=== PATIENT | female | born 1990 | race Caucasian/White ===

== ENCOUNTER 2023-04-04 12:53 | Emergency (ER) | payer OTHER, SELFPAY ==
[2023-04-04 13:01] VITALS: BP 125/93; PULSE 78; RESP 16; TEMP 36.8; O2SAT 99; BMI 22.0
[2023-04-04] MEDS: LIDOCAINE HCL 1% 100 MG/10 ML MDV INJ (14:56)
[2023-04-04] MEDS: SODIUM CHLORIDE 0.9% IRRIG SOLUTION 1,000 ML BOTTLE 1000 ML IRR (14:57)
--- NOTE | 2023-04-04 15:04 | ED_ITS ---
Documented by User: Kathya Shaffer 04/04/23 15:15 HPI - General Adult General Chief complaint: Skin/Abscess/Foreign Body Stated complaint: LOWER EXTREMITY PAIN Time Seen by Provider: 04/04/23 13:47 Source: patient Mode of arrival: walk-in Limitations: no limitations History of Present Illness HPI narrative: 32-year-old female presents with chief complaint of right labial abscess. Patient states she has had this drained in the past. She states started having pain 2-3 days ago. she sees Dr Fernandez and was to have surgery over a year ago but was drained and did not have another issue. Related Data Previous Rx's Medication Instructions Recorded doxycycline hyclate 100 mg capsule 100 mg PO BID 10 days #20 caps 04/04/23 Allergies Allergy/AdvReac Type Severity Reaction Status Date / Time No Known Drug Allergies Allergy Verified 04/04/23 13:03 Review of Systems ROS Narrative ROS:All Systems are negative except as noted/marked.All systems reviewed and otherwise negative PFSH PFSH Social History Smoking status: Former smoker Exam Narrative Exam Narrative: Nurses note and vital signs reviewed and patient is not hypoxic. General: The patient appears well and in no apparent distress. Patient is resting comfortably on cart. Skin: Warm, dry, no pallor noted. There is no rash noted. Head: Normocephalic, atraumatic Eye: Normal conjunctiva, no drainage, EOMI. PERRL Ears, Nose, Mouth, and Throat: oral mucosa is moist. Nares patent. Mouth without vesicles. Ear canals patent. Tm's without Erythema gu: right labia abscess, no acute drainage, 3x 2 cm area of swelling and fluctuance Musculoskeletal: The patient has no evidence of calf tenderness, no pitting edema, symmetrical pulses noted bilaterally Neurological: A&O x4, normal speech Psychiatric: Cooperative Constitutional Vital Signs, click to edit/add: Last Vital Signs Temp 98.2 F 04/04/23 13:01 Pulse 78 04/04/23 13:01 Resp 16 04/04/23 13:01 BP 125/93 H 04/04/23 13:01 Pulse Ox 99 04/04/23 13:01 O2 Del Method Room Air 04/04/23 13:01 Course Vital Signs Vital signs: Vital Signs Temperature 98.2 F 04/04/23 13:01 Pulse Rate 78 04/04/23 13:01 Respiratory Rate 16 04/04/23 13:01 Blood Pressure 125/93 H 04/04/23 13:01 Pulse Oximetry 99 04/04/23 13:01 Oxygen Delivery Method Room Air 04/04/23 13:01 Temperature 98.2 F 04/04/23 13:01 Pulse Rate 78 04/04/23 13:01 Respiratory Rate 16 04/04/23 13:01 Blood Pressure 125/93 H 04/04/23 13:01 Pulse Oximetry 99 04/04/23 13:01 Oxygen Delivery Method Room Air 04/04/23 13:01 Medical Decision Making MDM Narrative Medical decision making narrative: pt has history of labial abscess. right labia abscess on exam 2x3 cm of induration, area anesthetized with 1% lidocaine , area was cleaned with Betadine normal saline. small incision made with 11 blade. small amount of blood drained, area irrigated with normal saline and Betadine , 1/4 packing placed. dressing applied by nursing staff. pt will be discharged to home and follow up with Dr Fernandez in 2 days. pt verbalizes understanding and agrees with plan of care Differential Diagnosis Differential Diagnosis: Bartholin cyst, abscess or cyst, abscess Medical Records Medical records reviewed: Yes I reviewed the patient's medical records Lab Data Lab results reviewed: Yes I reviewed the patient's lab results Discharge Plan Discharge Chief Complaint: Skin/Abscess/Foreign Body Clinical Impression: Abscess of Bartholin's gland Patient Disposition: Home, Self-Care Time of Disposition Decision: 15:02 Condition: Good Prescriptions / Home Meds: New doxycycline hyclate 100 mg capsule 100 mg PO BID 10 Days Qty: 20 0RF Instructions: Abscess (ED), Incision and Drainage (ED) Stand Alone Forms: Portal Instructions Referrals: Brian Fernandez DO [Physician] - 04/06/23 Physician,Non-Staff, [Primary Care Provider] - 1 week Discharge Date/Time: 04/04/23 15:16 Documented by User: Rainer Hernandez MD 04/04/23 21:08 HPI - General Adult General Chief complaint: Skin/Abscess/Foreign Body Stated complaint: LOWER EXTREMITY PAIN Time Seen by Provider: 04/04/23 13:47 Related Data Previous Rx's Medication Instructions Recorded doxycycline hyclate 100 mg capsule 100 mg PO BID 10 days #20 caps 04/04/23 Allergies Allergy/AdvReac Type Severity Reaction Status Date / Time No Known Drug Allergies Allergy Verified 04/04/23 13:03 PFSH PFS Social History Smoking status: Former smoker Exam Constitutional Vital Signs, click to edit/add: Last Vital Signs Temp 98.2 F 04/04/23 13:01 Pulse 78 04/04/23 13:01 Resp 16 04/04/23 13:01 BP 125/93 H 04/04/23 13:01 Pulse Ox 99 04/04/23 13:01 O2 Del Method Room Air 04/04/23 13:01 Course Vital Signs Vital signs: Vital Signs Temperature 98.2 F 04/04/23 13:01 Pulse Rate 78 04/04/23 13:01 Respiratory Rate 16 04/04/23 13:01 Blood Pressure 125/93 H 04/04/23 13:01 Pulse Oximetry 99 04/04/23 13:01 Oxygen Delivery Method Room Air 04/04/23 13:01 Temperature 98.2 F 04/04/23 13:01 Pulse Rate 78 04/04/23 13:01 Respiratory Rate 16 04/04/23 13:01 Blood Pressure 125/93 H 04/04/23 13:01 Pulse Oximetry 99 04/04/23 13:01 Oxygen Delivery Method Room Air 04/04/23 13:01 Medical Decision Making [facility] Narrative Medical decision making narrative: pt has history of labial abscess. right labia abscess on exam 2x3 cm of induration, area anesthetized with 1% lidocaine , area was cleaned with Betadine normal saline. small incision made with 11 blade. small amount of blood drained, area irrigated with normal saline and Betadine , 1/4 packing placed. dressing applied by nursing staff. pt will be discharged to home and follow up with Dr Fernandez in 2 days. pt verbalizes understanding and agrees with plan of care I, Dr Hernandez, have reviewed the above progress note and course of action in the ER; agree with the above. I have gone over history and physical, and discussed disposition and treatment plan with the patient. Discharge Plan Discharge Chief Complaint: Skin/Abscess/Foreign Body Clinical Impression: Abscess of Bartholin's gland Patient Disposition: Home, Self-Care Time of Disposition Decision: 15:02 Condition: Good Prescriptions / Home Meds: New doxycycline hyclate 100 mg capsule 100 mg PO BID 10 Days Qty: 20 0RF Instructions: Abscess (ED), Incision and Drainage (ED) Stand Alone Forms: Portal Instructions Referrals: Brian Fernandez DO [Physician] - 04/06/23 Physician,Non-Staff, [Primary Care Provider] - 1 week Discharge Date/Time: 04/04/23 15:16
[2023-04-04] MEDS: DOXYCYCLINE MONOHYDRATE 100 MG CAPSULE PO (15:06)
== END 2023-04-04 15:16 | disposition home or self-care (01) ==
PROVIDERS: Emergency Provider Emergency Medicine
DX: N75.1 Abscess of Bartholin's gland (principal); Z87.891 Personal history of nicotine dependence
CPT/HCPCS: 56420; 99285

== ENCOUNTER 2023-04-06 10:38 | Day surgery (SDC) | payer OTHER, SELFPAY ==
[2023-04-06] VITALS (14 sets, daily range): BP systolic 95–139; BP diastolic 43–75; PULSE 52–88; RESP 12–25; TEMP 36.4–36.7; O2SAT 98–100; BMI 23.4
[2023-04-06 11:14] LABS: HCG Quantitative <1 mIU/mL
[2023-04-06] MEDS: LACTATED RINGER'S SOLUTION 1,000 ML 50 ML IV (11:35)
--- NOTE | 2023-04-09 | OP_ITS ---
OPERATION DATE: ??04/09/2023 PROCEDURE:? Incision and drainage of right labial abscess. PREOPERATIVE DIAGNOSIS:? Right labial abscess. POSTOPERATIVE DIAGNOSIS:? Right labial abscess. ANESTHESIA:? General. SURGEON:? Brian Fernandez D.O. [employer]SEMBLER CLIP ON SUNGLASSES:? None. BLOOD LOSS:? 10 mL. URINE OUTPUT:? Yellow and clear. FINDINGS:? Right labial abscess approximately 8 cm in size. SPECIMEN:? Culture and sensitivity of abscess. PROCEDURE:? Patient was taken back to the operating room where she was prepped and draped in the normal sterile fashion after being placed into lithotomy position.? The right labial abscess was identified.? The incision was extended where there was a disruption in the right labial tissue and this was extended.? This was probed with a hemostat and copious amounts of pus were drained and irrigated from the patient?s right labia.? This was approximately 8 cm in size.? Please note:? The hemostat was used to break down all loculations.? Again, a significant amount of fluid was used to irrigate the area of concern.? Excellent hemostasis was noted.? The patient?s area was then packed using half inch Iodoform.? The patient was taken out of the dorsolithotomy position and awakened without difficulty.? Patient taken to Recovery in stable condition. [facility]
== END 2023-04-06 15:55 | disposition home or self-care (01) ==
PROVIDERS: Visit Provider Obstetrics & Gynecology
PROC: (CPT 400; principal; 2023-04-06 12:15)
DX: N76.4 Abscess of vulva (principal); Z87.891 Personal history of nicotine dependence
CPT/HCPCS: 56405; 36415; 84702; 87070; 87076; 87150; 87186; 99999; J2704

== ENCOUNTER 2024-01-11 20:35 | Outpatient (REF) | payer OTHER, SELFPAY ==
--- OUTSIDE RECORDS SUMMARY | 2024-01-11 20:39 | XMS_ITS | CCD ---
Author Organization [facility] Care Team Providers Care Relay Record Clerk Name Role Phone Unavailable Primary Care Provider SABRINA Morfin Attending Unavailable REQUEST, NONE LISTED Primary Care Unavailduglas MARTINEZ, DR PERKINS Consulting Unavailable JUAN, DR PERKINS Admitting Unavailable JUAN, DR PERKINS Attending Unavailable ZIEBER, DR TOYIN Bingham Consulting Unavailable JUAN, DR PERKINS Admitting Unavailable JUAN, DR PERKINS Attending Unavailable JUAN, DR PERKINS Consulting Unavailable MATTHEW, NONE LISTED Primary Care UnavailSARAH Stafford Attending Unavailable SARAH VIDES Attending Unavailable GREGORIO MARTINEZ Attending Unavailable Medications Current Medications Medication Drug Class(es) Dates Sig (Normalized) Sig (Original) albuterol 0.83 mg/ml inhalation solution (4 sources) beta2-Adrenergic Agonist Start: 10-03-2020 End: 10-03-2020 albuterol (PROVENTIL) nebulizer solution 2.5 mg Start: 10-03-2020 albuterol sulf ate HFA 108 (90 Base) MCG/ACT inhaler 2 puff Start: 10-03-2020 End: 10-03-2020 albuterol (PROVENTIL) (2.5 M G/3ML) 0.083% nebulizer solution predniSONE 50 mg oral tablet (1 source) Start: 10-03-2020 End: 10-07-2020 take 1 tablet by mouth once daily predniSONE (DELTASONE) 50 MG tablet Take 1 tablet by mouth daily for 4 days 5 tablet 0 10/03/2020 10/07/2020 Active Completed/Discontinued Medications Medication Drug Class(es) Dates Sig (Normalized) Sig (Original) methylPREDNISolone 125 mg injection (1 source) Corticosteroid Start: End: methylPREDNISolone sodium (SOLU-MEDROL) injection 125 mg Problems Problem Classification Problem Date Documented Date Episodic/Chronic Asthma (1 source) Allergic asthma; Translations: [Unspecified asthma, uncomplicated] Chronic Immunizations and screening for infectious disease (1 source) Encounter for screening for human papillomavirus (HPV); Translations: [ENC SCREENING HUMAN PAPILLOMAVIRUS] Onset: 01-08-2022 Episodic Menstrual disorders (4 sources) Excessive and frequent menstruation with irregular cycle; Translations: [EXCESS AND FREQ MEN W/IRREG CYCLE] Onset: 03-19-2022 Chronic Nonmalignant breast conditions (1 source) Nipple discharge; Translations: [NIPPLE DISCHARGE] Onset: 01-08-2022 Episodic Other screening for suspected conditions (not mental disorders or infectious disease) (4 sources) Encounter for screening for malignant neoplasm of cervix; Translations: [ENC SCREENING MALIG NEOPLASM CERV] Onset: 01-07-2022 Episodic Results Test Name Value Interpretation Reference Range Facility PROGESTERONEon 03-21-2022 Progesterone 0.3 ng/mL Normal [facility] Comment on above: Result Comment: Foll icular phase 0.1 - 0.9 Luteal phase 1.8 - 23.9 Ovulation phase 0.1 - 12.0 First trimester 11.0 - 44.3 Second trimester 25.4 - 83.3 Third trimester 58.7 - 214.0 Postmenopausal 0.0 - 0.1 Performed By: #### P MARLENA #### [facility] [address] [place] [address] Dr. Radha Cintron US PELVIS AND TRANSVAGon US PELVIS AND TRANSVAG EXAMINATION: US PELVIS AND TRANSVAG HISTORY: Excessive menstruation with irregular cycle COMPARISON: Ultrasound pelvis 03/20/2019 TECHNIQUE: Transabdominal and transvaginal sonographic examination. FINDINGS: UTERUS: Normal size and appearance. Uterus size: 7.8 x 4.5 5.0 cm ENDOMETRIUM: Normal homogeneous appearance. Endometrial thickness: 7 mm RIGHT OVARY: Contains several anechoic simple cysts. Contains a small 0.3 cm calcification versus hyperdense/hemorrhagi c cyst. Duplex Doppler demonstrates normal waveform and flow; resistive index 0.7. Ovary size: 3.2 x 1.6 x 1.3 cm LEFT OVARY: Contains several anechoic simple cysts, largest is 3.2 cm. Duplex Doppler demonstrates normal waveform and flow; resistive index 0.5. Ovary size: 4.2 x 3.5 x 3.7 cm CUL-DE-SAC: Unremarkable. No significant free fluid. BLADDER: Unremarkable. OTHER: None. IMPRESSION: 1. No abnormal or suspicious findings to account for patient's symptoms. 2. Both ovaries contain several benign-appearing simple cysts. Electronically authenticated by: TOYIN DORADO Date: 2022-03-20 07:45 Normal [facility] CBC AUTO DIFFon 03-19-2022 BASO # 0.1 103/ul Normal 0.0-0.1 [facility] Comment on above: Performed By: #### C BC #### [facility] [address] [address] [address] Radha Cintron Basophils/100 WBC (Bld) 0.7 % Normal 0.2-2.0 [facility] Comment on above: Performed By: #### C BC #### [facility] [address] [address] [address] Radha Cintron EO # 0.2 103/ul Normal 0.0-0.7 [facility] Comment on above: Performed By: #### C BC #### [facility] [address] [address] [address] Radha Cintron Eosinophils/100 WBC (Bld) 1.9 % Normal 0.9-7.0 [facility] Comment on above: Performed By: #### C BC #### [facility] [address] [address] [address] Radha Cintron Erythrocyte distribution width (RBC) [Ratio] 12.9 % Normal 11.0-15.0 [facility] Comment on above: Performed By: #### C BC #### [facility] [address] [address] [address] Radha Cintron Hematocrit (Bld) [Volume fraction] 40.6 % Normal 36.0-48.0 [facility] Comment on above: Performed By: #### C BC #### [facility] [address] [address] [address] Radha Cintron Hemoglobin (Bld) [Mass/Vol] 13.5 g/dL Normal 12.0-16.0 [facility] Comment on above: Performed By: #### C BC #### [facility] [address] [place] [address] Dr. Radha Cintron IG # 0.02 10e3/ul Normal 0.00-0.03 [facility] Comment on above: Performed By: #### C BC #### [facility] [address] [place] [address] Dr. Radha Cintron IG % 0.2 % Normal 0.0-0.5 [facility] Comment on above: Performed By: #### C BC #### [facility] [address] [place] [address] Dr. Radha Cintron LYMPH # 2.9 103/ul Normal 1.2-3.8 [facility] Comment on above: Performed By: #### C BC #### [facility] [address] [place] [address] Dr. Radha Cintron Lymphocytes/100 WBC (Bld) 33.7 % Normal 20.5-60.0 [facility] Comment on above: Performed By: #### C BC #### [facility] [address] [place] [address] Dr. Radha Cintron MANUAL DIFF REQ NO Normal [facility] Comment on above: Performed By: #### C BC #### [facility] [address] [place] [address] Dr. aRdha Cintron MCH (RBC) [Entitic mass] 29.7 pg Normal 26.7-34.0 [facility] Comment on above: Performed By: #### C BC #### [facility] [address] [place] [address] Dr. Radha Cintron MCHC (RBC) [Mass/Vol] 33.3 g/dL Normal 29.9-35.2 [facility] Comment on above: Performed By: #### C BC #### [facility] [address] [place] [address] Dr. Radha Cintron MCV (RBC) [Entitic vol] 89.4 fL Normal 81.0-99.0 [facility] Comment on above: Performed By: #### C BC #### [facility] [address] [place] [address] Dr. Radha Cintron MONO # 0.6 103/ul Normal 0.3-0.8 [facility] Comment on above: Performed By: #### C BC #### [facility] [address] [place] [address] Dr. Radha Cintron Monocytes/100 WBC (Bld) 6.5 % Normal 1.7-12.0 [facility] Comment on above: Performed By: #### C BC #### [facility] [address] [place] [address] Dr. Radha Cintron NEUT # 4.9 103/ul Normal 1.4-6.5 [facility] Comment on above: Performed By: #### C BC #### [facility] [address] [place] [address] Dr. Radha Cintron Neutrophils/100 WBC (Bld) 57.0 % Normal 43.0-75.0 [facility] Comment on above: Performed By: #### C BC #### [facility] [address] [place] [address] Dr. Radha Cintron Platelet mean volume (Bld) [Entitic vol] 10.8 fL Normal 9.5-13.5 [facility] Comment on above: Performed By: #### C BC #### [facility] [address] [place] [address] Dr. Radha Cintron PLT 252 103/ul Normal 150-450 [facility] Comment on above: Performed By: #### C BC #### [facility] [address] [place] [address] Dr. Radha Cintron RBC 4.54 106/ul Normal 4.20-5.40 [facility] Comment on above: Performed By: #### C BC #### [facility] [address] [place] [address] Dr. Radha Citnron WBC 8.6 103/ul Normal 4.0-11.0 [facility] Comment on above: Performed By: #### C BC #### [facility] [address] [place] [address] Dr. Radha Cintron FREE T4on 03-19-2022 Free T4 [Mass/Vol] 1.17 ng/dL Normal 0.76-1.46 [facility] Comment on above: Performed By: #### F T4 #### [facility] [address] [address] [address] Radha Cintron GLYCOHEMOGLOBIN A1Con 2021 ADA RECOMMENDATION SEE BELOW Normal [facility] Comment on above: Result Comment: ADA RECOMMENDED LIMIT 4.0 - 6.0 ADA THERAPEUTIC TARGET < 7.0 ACTION SUGGESTED > 7.0 Performed By: #### A 1C ####[facility] [id number] [address]Dr. Radha Cintron Glucose [Mass/Vol] 97 mg/dL Normal [facility] Comment on above: Performed By: #### A 1C ####[facility] [id number] [address]Dr. Radha Cintron HbA1c (Bld) [Mass fraction] 5.0 % Normal 4.5-6.2 [facility] Comment on above: Performed By: #### A 1C ####[facility] [id number] [address]Dr. Radha Cintron LDHon 03-19-2022 LDH 145 U/L Normal 81-234 [facility] Comment on above: Performed By: #### L DH, TSH #### [facility] [address] [address] [address] Radha Cintron PROTIMEon 03-19-2022 INR Coag (PPP) [Relative time] 1.09 {INR} Normal [facility] Comment on above: Performed By: #### P T, PTT #### [facility] [address] [address] [address] Radha Cintron INR GUIDELINES SEE BELOW Normal [facility] Comment on above: Result Comment: MARYBETH RED INR: 2.0 - 3.0 CONDITIONS NOT LISTED BELOW 2.5 - 3.5 FOR PROSTHETIC HEART VALVE REPLACEMENT 2.5 - 3.5 RECURRENT THROMBOSIS Performed By: #### P T, PTT #### [facility] [address] [place] [address] Dr. Radha Cintron PT Coag (PPP) [Time] 11.7 s Critically high 9.0-11.6 [facility] Comment on above: Performed By: #### P T, PTT #### [facility] [address] [place] [address] Dr. Radha Cintron PTTon 03-19-2022 aPTT Coag (Bld) [Time] 31.6 s Normal 22.3-36.2 [facility] Comment on above: Performed By: #### P T, PTT #### [facility] [address] [place] [address] Dr. Radha Cintron TSHon 03-19-2022 TSH 1.511 uIU/mL Normal 0.358-3.740 [facility] Comment on above: Performed By: #### L DH, TSH #### [facility] [address] [place] [address] Dr. Radha Cintron PAP ACOG PANEL 2: 30 to 65on 01-15-2022 . . Normal [facility] Comment on above: Result Comment: Perf ormed at: WB Performed By: #### [id number] #### [facility] [address] [place] [address] Dr. Radha Cintron Age Gdln ACOG Testing - Normal [facility] Comment on above: Performed By: #### [id number] #### [facility] [address] [place] [address] Dr. Radha Cintron DIAGNOSIS: Comment Normal [facility] Comment on above: Result Comment: NEGA TIVE FOR INTRAEPITHELIAL LESION OR MALIGNANCY. Performed at: WB Performed By: #### [id number] #### [facility] [address] [place] [address] Dr. Radha iCntron HPV Aptima Negative Normal Negative [facility] Comment on above: Result Comment: This nucleic acid amplification test detects fourteen high-risk HPV types (16,18,31,33,35,39,45,51,52,56,58,59,66,68) without differentiation. Performed at: =G Performed By: #### [id number] #### [facility] [address] [place] [address] Dr. Radha Cintron Methodology: Comment Normal [facility] Comment on above: Result Comment: This liquid based ThinPrep(R) pap test was screened with the use of an image guided system. Performed at: WB Performed By: #### [id number] #### [facility] [address] [place] [address] Dr. Radha Cintron Note: Comment Normal [facility] Comment on above: Result Comment: The Pap smear is a screening test designed to aid in the detection of premalignant and malignant conditions of the uterine cervix. It is not a diagnostic procedure and should not be used as the sole means of detecting cervical cancer. Both false-positive and false-negative reports do occur. . Performed at: WB Performed By: #### [id number] #### [facility] [address] [place] [address] Dr. Radha Cintron Performed by: Comment Normal [facility] Comment on above: Result Comment: Patricia Marquez, Hydraulic Plumber Helper (ASCP) Performed at: WB Performed By: #### [id number] #### [facility] [address] [place] [address] Dr. Radha Cintron Specimen adequacy: Comment Normal [facility] Comment on above: Result Comment: Sati sfactory for evaluation. Endocervical and/or squamous metaplastic cells (endocervical component) are present. Performed at: WB Performed By: #### [id number] #### [facility] [address] [place] [address] Dr. Radha Cintron WOUND CULTUREon 01-11-2022 Bacteria identified Aer cx Nom (Unsp spec) Final report [facility] Comment on above: Performed By: #### C XWND #### [facility] [address] [place] [address] Dr. Radha Cintron Result 1 Mixed skin cris Normal [facility] Comment on above: Performed By: #### C XWND #### [facility] [address] [place] [address] Dr. Radha Cintron COVID-19, RapidOrdered By: Janelle Reyes on 10-03-2020 SARS-CoV-2 (COVID-19) RNA GÉNESIS+probe Ql (Unsp spec) Not detected Not Detected [employer] Phone: Comment on above: Rapid NAAT: The specimen is NEGATIVE for SARS-CoV-2, the novel coronavirus associated with COVID-19. The ID NOW COVID-19 assay is designed to detect the virus that causes COVID-19 in patients with signs and symptoms of infection who are suspected of COVID-19. An individual without symptoms of COVID-19 and who is not shedding SARS-CoV-2 virus would expect to have a negative (not detected) result in this assay. Negative results should be treated as presumptive and, if inconsistent with clinical signs and symptoms or necessary for patient management, should be tested with an alternative molecular assay. Negative results do not preclude SARS-CoV-2 infection and should not be used as the sole basis for patient management decisions. Fact sheet for Healthcare Providers: https://www.fda.gov/media/038392/download Fact sheet for Patients: https://www.fda.gov/media/061652/download Methodology: Isothermal Nucleic Acid Amplification Specimen Description .NASOPHARYNGEAL SWAB [employer] Phone: [employer] Phone: [id number] 10-03-2020 SARS-CoV-2 (COVID-19) RNA GÉNESIS+probe Ql (Unsp spec) Not detected Normal [facility] Comment on above: Result Comment: Rapid NAAT: The specimen is NEGATIVE for SARS-CoV-2, the novel coronavirus associated with COVID-19. The ID NOW COVID-19 assay is designed to detect the virus that causes COVID-19 in patients with signs and symptoms of infection who are suspected of COVID-19. An individual without symptoms of COVID-19 and who is not shedding SARS-CoV-2 virus would expect to have a negative (not detected) result in this assay. Negative results should be treated as presumptive and, if inconsistent with clinical signs and symptoms or necessary for patient management, should be tested with an alternative molecular assay. Negative results do not preclude SARS-CoV-2 infection and should not be used as the sole basis for patient management decisions. Fact sheet for Healthcare Providers: https://www.fda.gov/media/234133/download Fact sheet for Patients: https://www.fda.gov/media/034358/download Methodology: Isothermal Nucleic Acid Amplification Performed By: #### C OVRB #### [facility] [address] [place] [address] [employer] Dry [employer] Manager: Bill Walter MD XR CHEST (2 VW)on 10-03-2020 XR CHEST (2 VW) EXAMINATION: TWO XRAY VIEWS OF THE CHEST 10/03/2020 1:49 am COMPARISON: None. HISTORY: ORDERING SYSTEM PROVIDED HISTORY: cough TECHNOLOGIST PROVIDED HISTORY: cough FINDINGS: Heart size and pulmonary vasculature are normal. The lungs are clear and normally expanded. Surrounding osseous and soft tissue structures are unremarkable. IMPRESSION: Normal examination. Interpreted by: Karthik Massey Signed by: Karthik Massey 10/03/20 Final result Normal [facility] XR CHEST (2 VW)Ordered By: Janelle Reyes on 10-03-2020 Normal examination. [employer] Phone: EXAMINATION: TWO XRA Y VIEWS OF THE CHEST 10/03/2020 1:49 am COMPARISON: None. HISTORY: ORDERING SYSTEM PROVIDED HISTORY: cough TECHNOLOGIST PROVIDED HISTORY: cough FINDINGS: Heart size and pulmonary vasculature are normal. The lungs are clear and normally expanded. Surrounding osseous and soft tissue structures are unremarkable. [employer] Phone: Rakan, pn Incoming Radiant Results From [employer] - 10/03/2020 2:42 AM EDT EXAMINATION: TWO XRAY VIEWS OF THE CHEST 10/03/2020 1:49 am COMPARISON: None. HISTORY: ORDERING SYSTEM PROVIDED HISTORY: cough TECHNOLOGIST PROVIDED HISTORY: cough FINDINGS: Heart size and pulmonary vasculature are normal. The lungs are clear and normally expanded. Surrounding osseous and soft tissue structures are unremarkable. IMPRESSION: Normal examination. [employer] Phone: [employer] Phone: Vital Signs Date Time Vital Sign Value Performing Clinician Faci lity 10-03-2020 03:30-0400 Diastolic blood pressure 60 mm[Hg] Sabrina Reyes MD Work Phone: [employer] Work Phone: 10-03-2020 03:30-0400 SaO2% (BldA) [Mass fraction] 93 % Sabrina Reyes MD Work Phone: [employer] Work Phone: 10-03-2020 03:30-0400 Systolic blood pressure 123 mm[Hg] Sabrina Reyes MD Work Phone: [employer] Work Phone: 10-03-2020 01:15-0400 Body temperature 97.2 [degF] Sabrina Reyes MD Work Phone: [employer] Work Phone: 10-03-2020 01:15-0400 Heart rate 95 /min Sabrina Reyes MD Work Phone: [employer] Work Phone: 10-03-2020 01:15-0400 Respiratory rate 18 /min Sabrina Reyes MD Work Phone: [employer] Work Phone: Encounters Encounter Date Encounter Type Care Provider Facility Start: 11-24-2023 End: 11-24-2023 ambulatory GREGORIO MARTINEZ Not Available Start: 04-09-2023 End: 04-09-2023 ambulatory SARAH VIDES Not Available Start: 04-07-2023 End: 04-07-2023 ambulatory SARAH PEEWEE Not Available Start: 04-06-2023 End: 04-06-2023 ambulatory SARAH PEEWEE Not Available Start: 03-19-2022 End: 03-20-2022 ambulatory NONE LISTED REQUEST Facility:[facility] Start: 01-07-2022 End: 01-07-[address] GREGORIO MARTINEZ Facility: Start: 10-03-2020 End: 10-03-2020 Emergency department patient visit SABRINA REYES [facility] Start: 10-03-2020 End: 10-03-2020 Emergency department patient visit Sabrina Reyes MD Work Phone: [facility] ED Comment on above: Asthma due to season al allergies (Primary Dx) Procedures Date Procedure Procedure Detail Performing Clinician Start: 10-03-2020 COVID-19, RAPID Sabrina Reyes MD Work Phone: Start: 10-03-2020 Radiologic exam ches t 2 views Sabrina Reyes MD Work Phone: Plan of Treatment Date Care Activity Detail Author Start: 01-08-2021 Influenza vaccination Flu vacc ine (Season Ended) [facility] Work Phone: Start: 2010 Screening for malign ant neoplasm of cervix Cervical cancer screen [facility] [employer] Phone: Start: 2008 DTaP/Tdap/Td vaccine (1 - Tdap) DTaP/Tdap/Td vaccine (1 - Tdap) [facility] [employer] Phone: Start: 2004 HIV screening HIV screen [facility] Work Phone: Start: 2001 COVID-19 Vaccine (1) COVID-19 Vaccin e (1) [facility] [employer] Phone: Start: 01-01-1996 Pneumococcal 0-64 ye ars Vaccine (1 of 2 - PPSV23) Pneumococcal 0-64 years Vaccine (1 of 2 - PPSV23) [facility] [employer] Phone: Start: 1990 Varicella vaccine (1 of 2 - 2-dose childhood series) Varicella vaccine (1 of 2 - 2-dose childhood series) [facility] [employer] Phone: Start: 1989 Hepatitis C screening Hepatitis C sc reen [facility] [employer] Phone: Nebulizer therapy [facility] Treatment Respiratory Care Routine Every 6hr As Needed until discontinued starting 10/03/2020 [facility] [employer] Phone: Comment on above: Every 6hr As Needed until discontinued starting 10/03/2020 Payers Date Payer Category Payer Unknown [id number] [id number] 1989 Unknown [id number] 2.16.84 [id number] 1989 Unknown [id number] 2.16.84 [id number] 1989 Unknown [id number] 2.16.84 [id number] 1989 Unknown [id number] 1989 Unknown [id number] 1989 Unknown [id number] 1959 Unknown [id number] Social History Date Type Detail Facility Start: 11-14-2018 Tobacco smoking stat [facility] Current every day smoker [employer] Phone: Start: 11-14-2018 Cigarettes smoked current (pack per day) - Reported [employer] Phone: Start: 11-14-2018 Tobacco use and exposure Never used [employer] Start: 11-14-2018 Alcohol intake Ex-drinker (finding) [employer] Phone: Start: 1989 Sex Assigned At Not on file [facility] [employer] Phone: Exposure to SARS-CoV -2 (event) Not sure [employer] Evaluation note Note Date & Type Note Facility Evaluation note Diagnosis Asthma due to seasonal allergies- Primary documented in this encounter [employer] Phone: Hospital Discharge instructions InstructionsAttachments Note Date & Type Note Facility Hospital Discharge instructions Sabrina Reyes MD - 10/03/2020 Continue Claritin daily until symptoms resolve. Make sure that she stay well-hydrated. Take prednisone daily until complete. Use albuterol 2 puffs every 4 hours as needed for wheezing. Please return immediately if you develop any worsening symptoms. Follow-up with your primary care provider in 2 to 3 days if symptoms have not resolved. 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 Purpose Family History No Family History Records FoundNo Family History Records FoundNo Family History Records Found Additional Source Comments Reason for Visit (unrecogniz ed section and content) Reason Comments Shortness of Breath onset today Sinusitis onset today Cough onset today Ordered Prescriptions (unrec ognized section and content) Prescription Sig Dispensed Refills Start Date End Da te predniSONE (DELTASONE) 50 MG tablet Take 1 tablet by mouth daily for 4 days 5 tablet 0 10/03/2020 10/07/2020 Scheduled Active and Recently Administ ered Medications (unrecognized section and content) Medication Order 10/01/2020 10/02/2020 10/03/2020 albuterol (PROVENTIL) nebulizer solution 2.5 mg (COMPLETED) 2.5 mg, Nebulization, ONCE, On Angela 10/03/20 at 0200, For 1 dose 0200 (Given - Provid er: Janie Kaur RCP) albuterol (PROVENTIL) nebulizer solution 2.5 mg (COMPLETED) 2.5 mg, Nebulization, ONCE, On Angela 10/03/20 at 0230, For 1 dose 0226 (Given - Provid er: Janie Kaur RCP) methylPREDNISolone sodium (SOLU-MEDROL) injection 125 mg (COMPLETED) 125 mg, Intramuscular, ONCE, On Angela 10/03/20 at 0330, For 1 dose 0340 (Given - Provid er: Raven Randle RN) PRN Medication Order 10/01/2020 10/02/2020 10/03/2020 albuterol sulfate HFA 108 (90 Base) MCG/ACT inhaler 2 puff 2 puff, Inhalation, EVERY 6 HOURS PRN, Wheezing, Starting on Angela 10/03/20 at 0220 No Frequency Medication Order 10/01/2020 10/02/2020 10/03/2020 albuterol (PROVENTIL) (2.5 MG/3ML) 0.083% nebulizer solution (COMPLETED) Starting on Angela 10/03/20 at 0204, For 1 dose, Janie Kaur: cabinet override 0225 (Given - Provid er: Janie Kaur RCP) INFORMATION SOURCE (unrecogn ized section and content) DATE CREATED AUTHOR 10/06/2020 [facility] DATE CREATED AUTHOR AUTHOR'S ORGANIZ ATION 03/23/2022 [facility] DATE CREATED AUTHOR AUTHOR'S ORGANIZ ATION 11/28/2023 [facility] FOR RECORDS PERTAINING TO PATIENTS WHO ARE OR HAVE BEEN ENROLLED IN A CHEMICAL DEPENDENCY/SUBSTANCEABUSE PROGRAM, SOME INFORMATION MAY BE OMITTED. This clinical summary was aggregated from multiple sources. Caution should be exercised in using it in the provision of clinical care. This summary normalizes information from multiple sources, and as a consequence, information in this document may materially change the coding, format and clinical context of patient data. In addition, data may be omitted in some cases. CLINICAL DECISIONS SHOULD BE BASED ON THE PRIMARY CLINICAL RECORDS. [employer] provides no warranty or guarantee of the accuracy or completeness of information in this document.
== END 2024-01-11 20:36 | disposition home or self-care (01) ==
LOC: LAB 20:35
PROVIDERS: Visit Provider Obstetrics & Gynecology
DX: Z01.419 Encounter for gynecological examination (general) (routine) without abnormal findings (principal)
CPT/HCPCS: 87624; 88175